=== PATIENT | male | born 1980 | race Caucasian/White ===

== ENCOUNTER 2017-05-03 20:04 | Emergency (ER) | payer BC, OTHER ==
[2017-05-03 20:56] VITALS: BP 151/93
--- NOTE | 2017-05-03 21:17 | UC ---
Lower Extremity/Ankle HPI - HPI Summary HPI Summary: 36 y/o male presents to the urgent care w/ crutches c/o Rt ankle pain s/p slipping on mud and twisting his RT ankle and falling around 1530 today. Pt reports moderate swelling around lateral Rt ankle. Pain is 7/10 localized on lateral side, unable to bear weight. Pt applied ice and took ibuprofen after incident happened. Pt denies numbness and tingling over the Rt lower extremity, SOB, calf pain, chest pain, abdominal pain, N/V/D - History of Current Complaint Chief Complaint: UCLowerExtremity Stated Complaint: ANKLE INJURY Time Seen by Provider: 05/03/17 21:14 Hx Obtained From: Patient Onset/Duration: Sudden Onset, Lasting Hours - 4 hrs, Still Present Severity Initially: Moderate Severity Currently: Moderate Pain Intensity: 7 Pain Scale Used: 0-10 Numeric Aggravating Factor(s): Standing, Ambulation Alleviating Factor(s): Rest, Ice, OTC Meds Able to Bear Weight: No - Risk Factors Gout Risk Factors: Negative DVT Risk Factors: Negative Septic Arthritis Risk Factor: Negative - Allergies/Home Medications Allergies/Adverse Reactions: Allergies Allergy/AdvReac Type Severity Reaction Status Date / Time No Known Allergies Allergy Verified 05/03/17 20:48 Home Medications: Home Medications Loratadine [Alavert] 10 mg PO DAILY 05/03/17 [History Confirmed 05/03/17] Multivitamins/Minerals TAB* [Theragran/minerals TAB*] 1 tab PO DAILY 05/03/17 [ History Confirmed 05/03/17] PMH/Surg Hx/FS Hx/Imm Hx Previously Healthy: Yes Respiratory History: Asthma - Surgical History Surgical History: None - Family History Known Family History: Positive: Hypertension, Diabetes - Social History Occupation: Employed Full-time Lives: With Family Alcohol Use: Occasionally Substance Use Type: None Smoking Status (MU): Never Smoked Tobacco Review of Systems Constitutional: Negative Skin: Negative Eyes: Negative ENT: Negative Respiratory: Negative Cardiovascular: Negative Gastrointestinal: Negative Genitourinary: Negative Motor: Decreased ROM - RT ankle Neurovascular: Negative Musculoskeletal: Decreased ROM - RT ankle, Other: - Rt ankle pain s/p injury Neurological: Negative Psychological: Negative Is Patient Immunocompromised?: No All Other Systems Reviewed And Are Negative: Yes Physical Exam - Summary Physical Exam Summary: Vital Signs Reviewed: Yes General: well developed, well nourished male, sitting in the examining table w/ o any apparent distress Eyes: Positive: Conjunctiva Clear - PERRLA, EOMI, ENT: Positive: Normal ENT inspection, Hearing grossly normal, Pharynx normal, TMs normal Neck: Positive: Supple, Nontender, No Lymphadenopathy Respiratory: Positive: Chest non-tender, Lungs clear, Normal breath sounds, No respiratory distress Cardiovascular: Positive: RRR, No Murmur, Pulses Normal, Brisk Capillary Refill Abdomen Description: Positive: Nontender, No Organomegaly, Soft. Negative: CVA Tenderness (R), CVA Tenderness (L) Bowel Sounds: Positive: Present Musculoskeletal: - Ankle: Pt is no able to bear weight and comes into the clinic w/ crutches. The R ankle is with moderates swelling on the lateral malleolus, no deformity when compared to the L ankle. Decreased ROM due to pain. Lateral malleolus also with tenderness to palpation. No ecchymosis or bruising observed. NT to palpation over the medial malleolus , no swelling observed. Talar tilt test is negative for ligament laxity to valgus or varus stress. Negative anterior drawer. Peroneal nerve is intact with strong eversion and plantar flexion. Positive sensation over the Rt foot and Rt ankle, positive pulses, capillary refill intact Neurological Exam: Normal Psychological Exam: Normal Skin: warm and dry Triage Information Reviewed: Yes Vital Signs: Initial Vital Signs Temp 98.9 F 05/03/17 20:49 Pulse 64 05/03/17 20:49 Resp 18 05/03/17 20:49 BP 151/93 05/03/17 20:49 Pulse Ox 95 05/03/17 20:49 Lower Extremity Course/Dx - Course Course Of Treatment: 36 y/o male presents to the urgent care w/ crutches c/o Rt ankle pain s/p slipping on mud and twisting his RT ankle and falling around 1530 today. Pt reports moderate swelling around lateral Rt ankle. Pain is 7/10 localized on lateral side, unable to bear weight. Pt applied ice and took ibuprofen after incident happened. Pt denies numbness and tingling over the Rt lower extremity, SOB, calf pain, chest pain, abdominal pain, N/V/D. Hx obtained.Rt ankle X-ray ordered, Impression: Soft tissue swelling, joint effusion and no acute osseous injury as per radiologist . Pt most likely with a RT ankle Sprain. Pt immobilized with Ari bandage and gel ankle splint. Pt Rx Naproxen PO to decrease swelling and pain. first dose given tonight. Pt advised RICE, take Naproxen PO for pain, continue using crutches to avoid weight beraing and to f/u w/ orthopedic in 3 days if not improvement of symptoms for further treatment.Pt understood and agreed and left the clinic ambulating w/ the help of crutches. - Differential Dx/Diagnosis Differential Diagnosis/HQI/PQRI: Contusion, Dislocation, Fracture (Closed), Sprain, Strain, Tendonitis Provider Diagnoses: 1- Acute Rt ankle pain s/p injury. 2- RT ankle swelling s/ p injury Discharge - Discharge Plan Condition: Stable Disposition: HOME Prescriptions: Naproxen Sodium [Naproxen Sodium 500 MG TAB] 500 mg PO Q8HR PRN #30 tab PRN Reason: Pain Patient Education Materials: Ankle Sprain (ED), Low-Sodium Diet (ED) Forms: *Work Release Referrals: Tu Martinez MD [Primary Care Provider] - 3 Days Rebeca Dennison MD [Medical Doctor] - 3 Days Additional Instructions: 1-Please take medications as directed to alleviate pain and swelling. 2-Please apply ice, keep your ankle immobilized with the splint. Avoid weight bearing using the crutches 3- Please f/u with Orthopedic or your PCP in 3 days is not improvement of symptoms for further evaluation and treatment. 4-Your BP is elevated today. please decrease salt in your diet, monitor BP and if it continues to be elevated please f/u with your PCP for further management
--- NOTE | 2017-05-03 21:30 | RAD ---
HISTORY: Inversion injury COMPARISONS: None VIEWS: 3, Frontal, lateral, and oblique views of the right ankle FINDINGS: BONE DENSITY: Normal. BONES: There is no displaced fracture. JOINTS: There is no arthropathy. There is a small joint effusion. ALIGNMENT: There is no dislocation. SOFT TISSUES: There is circumferential soft tissue swelling. OTHER FINDINGS: None. IMPRESSION: SOFT TISSUE SWELLING. JOINT EFFUSION. NO ACUTE OSSEOUS INJURY. IF SYMPTOMS PERSIST, RECOMMEND REPEAT IMAGING.
[2017-05-03] MEDS ORDERED: Naproxen TAB* 250 MG PO ONE (21:49)
== END 2017-05-03 22:09 | disposition home or self-care (01) ==
LOC: UCEAST 20:04
DX: M25.571 Pain in right ankle and joints of right foot (principal); M25.471 Effusion, right ankle; S99.911A Unspecified injury of right ankle, initial encounter; W01.0XXA Fall on same level from slipping, tripping and stumbling without subsequent striking against object, initial encounter; Y93.9 Activity, unspecified; Y92.9 Unspecified place or not applicable; J45.909 Unspecified asthma, uncomplicated
CPT/HCPCS: 99212; A9270-GY; G0463